=== PATIENT | female | born 1985 | race Hispanic/Latino ===

== ENCOUNTER 2017-06-17 10:04 | Emergency (ER) | payer MEDICAID, MEDICARE, OTHER | END 2017-06-17 11:08 | disposition home or self-care (01) | LOC: EDH 10:04 | DX: O26.891 Other specified pregnancy related conditions, first trimester (principal); R10.84 Generalized abdominal pain; R30.0 Dysuria; Z88.6 Allergy status to analgesic agent; Z88.0 Allergy status to penicillin; Z3A.01 Less than 8 weeks gestation of pregnancy | CPT/HCPCS: 99281 ==

== ENCOUNTER 2018-01-10 22:04 | Emergency (ER) | payer MEDICAID ==
[2018-01-10] MEDS ORDERED: ONDANSETRON HCL 4 MG/2 ML VIAL ONE (23:21)
[2018-01-10] MEDS ORDERED: SODIUM CHLORIDE 0.9% 1000ML 1,000 ML IV ONE (23:22)
[2018-01-10 23:39] LABS: BASOPHILS % (AUTO) 0.3 % (0.0-5.0); EOSINOPHILS % (AUTO) 0.3 % (0.0-8.0); HEMATOCRIT 37.5 % (36-48); LYMPHOCYTES % (AUTO) 10.5 % (21.0-51.0); MEAN CORPUSCULAR HEMOGLOBIN 30.7 pg (27.0-33.0); MEAN CORPUSCULAR HGB CONC 33.6 g/dL (32.0-36.0); MEAN CORPUSCULAR VOLUME 91.3 fL (79-99); NEUTROPHILS % (AUTO) 83.9 % (40.0-77.0); PLATELET COUNT (AUTO) 348 K/uL (130-400); RED BLOOD CELL COUNT(AUTO) 4.11 MIL/uL (4.00-5.50); RED CELL DISTRIBUTION WIDTH 13.5 % (11.0-15.5); WHITE BLOOD COUNT (AUTO) 18.5 K/uL (4.8-10.8)
[2018-01-10 23:45] LABS: CREATININE 0.6 mg/dL (0.5-1.5); POTASSIUM 4.2 mmol/L (3.5-5.1)
[2018-01-10 23:49] LABS: ALBUMIN 3.5 g/dL (3.5-5.0); BILIRUBIN,TOTAL 0.3 mg/dL (0.2-1.0); TOTAL PROTEIN, SERUM 7.8 g/dL (6.0-8.3)
[2018-01-11 00:37] LABS: APPEARANCE,URINE Cloudy (CLEAR); BILIRUBIN,URINE Negative (NEGATIVE); COLOR,URINE Yellow (YELLOW); GLUCOSE, URINE (UA) Negative (NEGATIVE); KETONES,URINE Trace mg/dL (NEGATIVE); LEUKOCYTE ESTERASE ,URINE Moderate (NEGATIVE); NITRATE,URINE Negative (NEGATIVE); OCCULT BLOOD,URINE Negative (NEGATIVE); PROTEIN,URINE Negative (NEGATIVE); UROBILINOGEN,URINE 0.2 mg/dL (0.2-1.0)
[2018-01-11 00:39] LABS: HCG,QUAL RESULT NEGATIVE (NEGATIVE)
[2018-01-11 00:51] LABS: BACTERIA,URINE Few /HPF (None Seen); MUCUS,URINE Few LPF (None Seen); RBC,URINE 0-1 /HPF (0-1); SQUAMOUS EPITHELIAL CELL,UR Moderate /HPF (0-2)
[2018-01-11] MEDS ORDERED: LEVOFLOXACIN 750 MG/D5W 150 ML 150 ML ONE (01:07)
[2018-01-11] MEDS ORDERED: IOHEXOL-350 75 ML VIAL IV ONE (01:18)
== END 2018-01-11 02:55 | disposition home or self-care (01) ==
LOC: EDH 22:04
DX: D72.829 Elevated white blood cell count, unspecified (principal); R11.2 Nausea with vomiting, unspecified; R51 Headache; Z88.0 Allergy status to penicillin; Z88.1 Allergy status to other antibiotic agents; Z88.6 Allergy status to analgesic agent
CPT/HCPCS: 36415 ×2; 74177; 80053; 81001; 81025; 83605; 83690; 84484; 85025; 87040 ×2; 87077; 87186 ×2; 93005; 96361; 96365; 96375; 99285; J1956; J2405; J7030; Q9967